=== PATIENT | female | born 1980 | race Caucasian/White ===

== ENCOUNTER 2019-11-21 20:10 | Emergency (ER) | payer SELFPAY ==
[~2019-11-21] VITALS: Ht 154.9 cm; Wt 61.2 kg
[2019-11-21 20:15] VITALS: BP 125/71
--- NOTE | 2019-11-21 20:18 | NUR ---
TO [facility]
[2019-11-21 20:30] VITALS: BP 125/71
--- NOTE | 2019-11-21 20:30 | NUR ---
PT ASSESSMENT COMPLETE. PT SEATED UP RIGHT IN CHAIR. WILL CONTINUE TO MONITOR.
--- NOTE | 2019-11-21 21:05 | NUR ---
Patient discharged with v/s stable. Written and verbal after care instructions given and explained. Patient alert, oriented and verbalized understanding of instructions. Ambulatory with steady gait. All questions addressed prior to discharge. ID band removed. Patient advised to follow up with PMD. Rx of PROMETHEZINE, TYLENOL, AND MOTRIN given. Patient educated on indication of medication including possible reaction and side effects. Opportunity to ask questions provided and answered.
== END 2019-11-21 21:05 | disposition home or self-care (01) ==
LOC: MED 20:10
DX: J06.9 Acute upper respiratory infection, unspecified (principal)
CPT/HCPCS: 87804; 99283